=== PATIENT | male | born 1985 ===

== ENCOUNTER 2023-05-18 17:38 | Outpatient (REF) | payer OTHER, SELFPAY ==
[2023-05-19 09:30] LABS: Hepatitis C Ab w Rflx HCV PCR Negative (Negative)
[2023-05-19 09:42] LABS: HIV-1/2 Ag & Ab Screen Negative (Negative)
[2023-05-19 10:18] LABS: Syphilis Serology (RPR) Negative (Negative)
== END 2023-05-18 17:39 | disposition home or self-care (01) ==
LOC: NCHCN 17:38
PROVIDERS: Visit Provider Family Medicine
DX: R36.1 Hematospermia (principal); Z11.4 Encounter for screening for human immunodeficiency virus [HIV]; Z11.59 Encounter for screening for other viral diseases; Z11.3 Encounter for screening for infections with a predominantly sexual mode of transmission
CPT/HCPCS: 86803; 87389; 86592

== ENCOUNTER 2023-05-21 11:51 | Outpatient (REF) | payer OTHER, SELFPAY ==
[2023-05-23 13:18] LABS: Chlamydia Result Negative (Negative); GC Result Negative (Negative)
== END 2023-05-21 11:52 | disposition home or self-care (01) ==
LOC: NCHCN 11:51
PROVIDERS: Visit Provider Family Medicine
DX: R36.1 Hematospermia (principal)
CPT/HCPCS: 87491; 87591